=== PATIENT | female | born 1995 | race Caucasian/White ===

== ENCOUNTER → 2020-09-14 | Outpatient (CLI) | payer BC | LOC: US 08:11 | PROVIDERS: ATTEND Internal Medicine Gastroenterology | DX: K58.1 Irritable bowel syndrome with constipation (principal) | CPT/HCPCS: 76705 ==

== ENCOUNTER → 2020-09-24 | Day surgery (SDC) | payer BC ==
[~2020-09-24] MED LIST: PANTOPRAZOLE 40 MG 10ML VIAL ONE
[2020-09-24 12:00] VITALS: BP 105/75
== END | disposition home or self-care (01) ==
LOC: OR 08:15
PROVIDERS: ATTEND Internal Medicine Gastroenterology
DX: K29.70 Gastritis, unspecified, without bleeding (principal); K21.9 Gastro-esophageal reflux disease without esophagitis; K20.90 Esophagitis, unspecified without bleeding; K44.9 Diaphragmatic hernia without obstruction or gangrene; K76.0 Fatty (change of) liver, not elsewhere classified; K58.1 Irritable bowel syndrome with constipation; Z86.010 Personal history of colon polyps; Z88.0 Allergy status to penicillin; Z01.812 Encounter for preprocedural laboratory examination; Z20.822 Contact with and (suspected) exposure to COVID-19
CPT/HCPCS: 43239; 81025; C9113; U0002